=== PATIENT | female | born 1985 | race Hispanic/Latino ===

== ENCOUNTER 2021-07-05 20:55 | Emergency (ER) | payer SELFPAY ==
[~2021-07-05] VITALS: Ht 167.6 cm; Wt 69.9 kg
[2021-07-05] MEDS ORDERED: AFRIN15 ML INH (21:24)
[2021-07-05] MEDS ORDERED: PSEUDOEPHEDRINE30 MG PO (21:24)
[2021-07-05 22:05] VITALS: BP 126/81
== END 2021-07-05 22:05 | disposition home or self-care (01) ==
LOC: FSED 21:00
DX: J06.9 Acute upper respiratory infection, unspecified (principal); R05.9 Cough, unspecified
CPT/HCPCS: 99282